=== PATIENT | female | born 1995 | race Caucasian/White ===

== ENCOUNTER 2020-03-13 00:47 | Outpatient (CLI) | payer BC, SELFPAY ==
[2020-03-13 18:12] LABS: SARS-CoV-2 RNA PCR Negative
== END 2020-03-13 00:48 | disposition home or self-care (01) ==
LOC: ANHCOVIDDT 00:47
PROVIDERS: Internal Medicine Gastroenterology; PCP Family Medicine; Visit Provider Internal Medicine Gastroenterology
DX: Z20.828 Contact with and (suspected) exposure to other viral communicable diseases (principal); Z01.812 Encounter for preprocedural laboratory examination
CPT/HCPCS: 87635; C9803; U0003

== ENCOUNTER 2020-03-15 01:57 | Day surgery (SDC) | payer BC, SELFPAY ==
[2020-03-12 14:17] VITALS: BMI 40.8
[2020-03-15 09:10] VITALS: BP 117/85; PULSE 97; RESP 18; TEMP 36.1; O2SAT 98
--- NOTE | 2020-03-15 09:43 | WPDANESEPPF ---
Anes - Initial Pre Proc Eval Procedure: Operation Date: 03/15/20 09:30 Proposed Procedures p Esophagogastroduodenoscopy - Riky Maldonado MD Date/Time: 03/15/20 09:43 Surgeon: Riky Maldonado MD Pre Op Diagnosis: Dysphagia Patient Data Age: 24 Gender: F Height: 5 ft 3 in Weight: 104.9 kg Last Vital Signs Temp 96.9 F L 03/15/20 09:10 Pulse 97 03/15/20 09:10 Resp 18 03/15/20 09:10 BP 117/85 03/15/20 09:10 Pulse Ox 98 03/15/20 09:10 Allergies Allergy/AdvReac Type Severity Reaction Status Date / Time No Known Allergies Allergy Verified 03/15/20 09:17 Home Medications Medication Instructions Recorded Confirmed Type citalopram 10 mg tablet 20 mg PO DAILY 10/19/19 03/15/20 History amitriptyline 25 mg tablet 25 mg PO DAILY #30 tablet 02/20/20 03/15/20 Rx omeprazole 40 mg capsule,delayed 40 mg PO DAILY #30 cap 03/06/20 03/15/20 Rx release diphenhydramine HCl [Benadryl] 25 mg PO HS 03/12/20 03/15/20 History Patient hx anesthesia problems: none Family hx anesthesia problems: none [facility] Past Medical History Medical History (Updated 03/15/20 @ 09:43 by Enrique Connolly MD) Asthma Bipolar disorder, current episode depressed, mild or moderate severity, unspecified Migraine Morbid obesity QUIAAN (obstructive sleep apnea) Social History Social History Smoking status: Never smoker Second hand tobacco smoke exposure: Yes Alcohol intake: current Substance use type: marijuana Anes - Eval Final PreProcedure Day of Procedure 03/15/20 09:43 Patient weight: morbidly obese Heart: regular rate and rhythm Lungs: clear to auscultation Airway: Mallampati scale class III Neurological: alert and oriented Last oral intake: >/= 8 hours ASA classification: III Emergent: no Anesthetic plan: proceed Anesthesia type and monitoring: general GIVS and standard monitoring Informed Consent: The patient's anesthetic plan and its attendant risks and benefits were discussed with the patient/family/POA. Questions were solicited and answers provided to the satisfaction of the patient/family/POA.
[2020-03-15] MEDS: LACTATED RINGERS 1,000 ML 150 ML IV CONT (10:03)
--- NOTE | 2020-03-15 10:18 | P.HP_ITS ---
History of Present Illness History of Present Illness Consent: Risks, benefits, and alternatives have been discussed and questions answered. Patient agrees to proceed with procedure. Chief complaint: Dysphagia Narrative: Cristina Lopez is a 24 year old W female referred for EGD with possible esophageal dilatation for evaluation of a several week history of solid food dysphagia. Patient states he has changed years diet to soft foods and is doing well and she was placed on omeprazole a week ago. She denies indigestion or heartburn. No nausea vomiting hematemesis. Patient with anxiety and depression. [facility] Past Medical History Medical History Asthma Bipolar disorder, current episode depressed, mild or moderate severity, unspecified Migraine Morbid obesity QUIANA (obstructive sleep apnea) Family History Family History Mother Patient's mother is in good health Asthma Family history of malignant melanoma Sibling Patient's sister is in good health Father Family history of cardiovascular disease Other Depression Social History Social History Smoking status: Never smoker Second hand tobacco smoke exposure: Yes Alcohol intake: current Substance use type: marijuana Meds Home Medications and Allergies Home Medications Medication Instructions Recorded Confirmed Type citalopram 10 mg tablet 20 mg PO DAILY 10/19/19 03/15/20 History amitriptyline 25 mg tablet 25 mg PO DAILY #30 tablet 02/20/20 03/15/20 Rx omeprazole 40 mg capsule,delayed 40 mg PO DAILY #30 cap 03/06/20 03/15/20 Rx release diphenhydramine HCl [Benadryl] 25 mg PO HS 03/12/20 03/15/20 History Allergies Allergy/AdvReac Type Severity Reaction Status Date / Time No Known Allergies Allergy Verified 03/15/20 09:17 Vital Signs Vital Signs - 24 hr 03/15/20 09:10 Temperature 36.1 C L Pulse Rate 97 Respiratory Rate 18 Blood Pressure 117/85 Pulse Oximetry 98 Exam Const: Orientation/consciousness: patient oriented x3 Resp: Auscultation: clear to auscultation bilaterally Cardio: Rate: regular rate Rhythm: regular rhythm Heart sounds: no murmurs GI: GI Palp: Yes Soft to palpation, No Tenderness to palpation present (GI), Yes No hepatosplenomegaly present and No Palpable mass present Auscultation: normal bowel sounds Neuro: General: patient oriented x3 and no focal motor deficits Extrem: General: no pedal edema Assessment and Plan Additional Plan EGD with possible esophageal dilatation for evaluation of dysphagia
[2020-03-15 10:36] VITALS: BP 132/82; PULSE 85; RESP 17; O2SAT 100
[2020-03-15 10:46] VITALS: BP 140/76; PULSE 90; RESP 22; O2SAT 100
[2020-03-15 10:56] VITALS: BP 126/59; PULSE 113; RESP 35; O2SAT 100
== END 2020-03-15 11:25 | disposition home or self-care (01) ==
PROVIDERS: PCP Family Medicine; Visit Provider Internal Medicine Gastroenterology
PROC: 0DJ08ZZ Inspection of Upper Intestinal Tract, Via Natural or Artificial Opening Endoscopic (ICD-10-PCS; CPT 43235; principal; 2020-03-15 09:30)
DX: R13.10 Dysphagia, unspecified (principal); K21.0 Gastro-esophageal reflux disease with esophagitis; K29.50 Unspecified chronic gastritis without bleeding; J45.909 Unspecified asthma, uncomplicated; G47.33 Obstructive sleep apnea (adult) (pediatric); F31.9 Bipolar disorder, unspecified; F12.90 Cannabis use, unspecified, uncomplicated; E66.01 Morbid (severe) obesity due to excess calories; Z68.41 Body mass index [BMI] 40.0-44.9, adult
CPT/HCPCS: 43239; 88305; J2704; J7120

== ENCOUNTER 2023-05-30 15:47 | Emergency (ER) | payer OTHER, SELFPAY ==
[2023-05-30 16:22] VITALS: BP 129/79; PULSE 92; RESP 16; TEMP 36.8; O2SAT 98
--- NOTE | 2023-05-30 16:47 | ED.SKABFB ---
HPI - Skin/Abscess/Foreign Bdy General Chief complaint: Skin/Abscess/Foreign Body Stated complaint: Insect Bite Time Seen by Provider: 05/30/23 16:47 Source: patient, RN notes reviewed and old records reviewed Mode of arrival: ambulatory Limitations: no limitations History of Present Illness HPI narrative: 27-year-old female who presents to [facility] with complaints of 2 lesions to the posterior aspect of both thighs.Patient states that both areas have increased in size since yesterday. Patient states that she thinks she got bit by some insect and has been applying hydrocortisone cream to areas. No open areas noted or any discharge or any warmth to lesions. MD complaint: lesion Onset (ago): day(s) (1) Location: LLE and RLE (bilateral thighs) Severity scale (1-10): 1 Treatments prior to arrival: other (hydrocortisone cream) Related Data Home Medications Medication Instructions Recorded Confirmed citalopram 10 mg tablet 20 mg PO DAILY 10/19/19 05/30/23 Allergies Allergy/AdvReac Type Severity Reaction Status Date / Time No Known Allergies Allergy Verified 05/30/23 16:59 Review of Systems Review of Systems: CONSTITUTIONAL: Denies fever, chills, or sweats. CARDIOVASCULAR: Denies chest pain, palpitations, or edema. RESPIRATORY: Denies cough or dyspnea. SKIN: Reports 2 minimal raised macular lesion, one each on posterior aspect of each thigh, no wound or drainage MUSCULOSKELETAL: Denies joint pain or myalgia. NEUROLOGIC: Denies headache, numbness, or weakness. All systems reviewed & are unremarkable except as noted in HPI and below PMFSH Past Medical History Medical History (Updated 05/31/23 @ 00:00 by Background Daemon) Asthma Bipolar disorder, current episode depressed, mild or moderate severity, unspecified Migraine Morbid obesity QUIANA (obstructive sleep apnea) Family History Family History Mother Patient's mother is in good health Asthma Family history of malignant melanoma Sibling Patient's sister is in good health Father Family history of cardiovascular disease Other Depression Social History Social History Smoking status: Never smoker Second hand tobacco smoke exposure: Yes Alcohol intake: current Substance use type: marijuana Comments At time of signature, agree with nursing past medical, surgical, social and family history. There is no relevant family history pertinent to the presenting complaint Exam Narrative: GENERAL: Well-appearing, well-nourished, and in no acute distress. HEAD: Normocephalic, atraumatic. EYES: PERRLA, conjunctivae clear, and EOMI. ENT: Mucous membranes moist. Oropharynx without edema, erythema or lesions. NECK: Supple. No lymphadenopathy CHEST: Clear to auscultation. No respiratory distress.SAO2 98% on room air HEART: Regular rate and rhythm. SKIN: Warm, dry.? 0.5cm diameter red macular lesions to the back of each thigh, wonders if she got bit by something, no warmth open area or drainage NEURO:? Alert and oriented x3. PSYCH: Normal mood and affect Course Course Emergency Course: Patient is aware of diagnosis, understands and agrees to treatment plan.? Anticipatory guidance given.? Patient agrees to follow-up as directed and is aware of reasons to seek care at the emergency department. Portions of this record may have been created with voice recognition software Level of Care: Express Care Visit Vital Signs Vital signs: Vital Signs Temperature 36.8 C 05/30/23 16:22 Pulse Rate 92 05/30/23 16:22 Respiratory Rate 16 05/30/23 16:22 Blood Pressure 129/79 05/30/23 16:22 Pulse Oximetry 98 05/30/23 16:22 Oxygen Delivery Room Air 05/30/23 16:22 Temperature 36.8 C 05/30/23 16:22 Pulse Rate 92 05/30/23 16:22 Respiratory Rate 16 05/30/23 16:22 Blood Pressure 129/79 05/30/23 16
== END 2023-05-30 17:30 | disposition home or self-care (01) ==
PROVIDERS: Emergency Provider Registered Nurse; PCP Registered Nurse
DX: L98.9 Disorder of the skin and subcutaneous tissue, unspecified (principal); J45.909 Unspecified asthma, uncomplicated; E66.01 Morbid (severe) obesity due to excess calories; Z68.41 Body mass index [BMI] 40.0-44.9, adult
CPT/HCPCS: 99213; G0463